=== PATIENT | female | born 2000 | race Caucasian/White ===

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

== ENCOUNTER 2024-07-25 21:12 | Emergency (ER) | payer OTHER ==
[2024-07-25 21:19] VITALS: BP 108/72; PULSE 74; RESP 18; TEMP 98.7; BMI 19.3
== END 2024-07-25 22:22 | disposition home or self-care (01) ==
LOC: JERFT 21:12
DX: H02.846 Edema of left eye, unspecified eyelid (principal)
CPT/HCPCS: 99283-25